=== PATIENT | male | born 1975 | race Caucasian/White ===

== ENCOUNTER 2020-09-13 14:38 | Emergency (ER) | payer OTHER ==
[~2020-09-13 14:38] MED LIST: TORADOL 10 MG T10 MG PO
== END 2020-09-13 16:23 | disposition home or self-care (01) ==
LOC: ER1 14:38
DX: T15.92XA Foreign body on external eye, part unspecified, left eye, initial encounter (principal); F17.210 Nicotine dependence, cigarettes, uncomplicated; X58.XXXA Exposure to other specified factors, initial encounter
CPT/HCPCS: 65205; 99283